=== PATIENT | female | born 1990 | race Caucasian/White ===

== ENCOUNTER 2016-08-28 13:09 | Emergency (ER) | payer OTHER ==
[~2016-08-28] VITALS: Ht 175.3 cm; Wt 125.2 kg
[2016-08-28] MEDS ORDERED: TRAZODONE HCL50 MG PO (13:29)
[2016-08-28] MEDS ORDERED: FISH OIL 1,0001 EAC3 PO (13:29)
== END 2016-08-28 15:46 | disposition home or self-care (01) ==
LOC: ED 13:09
DX: R10.11 Right upper quadrant pain (principal); E66.9 Obesity, unspecified; E78.5 Hyperlipidemia, unspecified; E78.00 Pure hypercholesterolemia, unspecified; F17.200 Nicotine dependence, unspecified, uncomplicated; Z79.899 Other long term (current) drug therapy
CPT/HCPCS: 76705; 80053; 81001; 83690; 84703; 85025; 99284

== ENCOUNTER 2017-10-06 22:17 | Emergency (ER) | payer OTHER ==
[~2017-10-06] VITALS: Ht 175.3 cm; Wt 125.2 kg
[~2017-10-06 22:17] MED LIST: FISH OIL 1,0001 EAC3 PO; TRAZODONE HCL50 MG PO
== END 2017-10-06 23:29 | disposition home or self-care (01) ==
LOC: ED 22:17
PROC: 0HQMXZZ Repair Right Foot Skin, External Approach (ICD-10-PCS; principal; 2017-10-06)
DX: S91.111A Laceration without foreign body of right great toe without damage to nail, initial encounter (principal); F17.200 Nicotine dependence, unspecified, uncomplicated; Z79.899 Other long term (current) drug therapy; Z23 Encounter for immunization; W25.XXXA Contact with sharp glass, initial encounter; Y92.090 Kitchen in other non-institutional residence as the place of occurrence of the external cause
CPT/HCPCS: 12002; 90471; 90715; 99282